=== PATIENT | male | born 1970 | race African-American/Black ===

== ENCOUNTER 2016-12-03 03:29 | Emergency (ER) | payer MEDICAID ==
[~2016-12-03] VITALS: Ht 172.7 cm; Wt 72.0 kg
[2016-12-03 04:00] VITALS: BP 118/76
== END 2016-12-03 07:18 | disposition home or self-care (01) ==
LOC: ER 03:30
DX: S02.2XXA Fracture of nasal bones, initial encounter for closed fracture (principal); F17.200 Nicotine dependence, unspecified, uncomplicated; F12.10 Cannabis abuse, uncomplicated; F16.10 Hallucinogen abuse, uncomplicated; W22.8XXA Striking against or struck by other objects, initial encounter; Y93.89 Activity, other specified; Y92.89 Other specified places as the place of occurrence of the external cause; Y99.8 Other external cause status
CPT/HCPCS: 70450; 70486; 99284

== ENCOUNTER 2018-06-14 12:36 | Emergency (ER) | payer MEDICAID ==
[~2018-06-14] VITALS: Ht 172.7 cm; Wt 62.0 kg
[2018-06-14 12:44] VITALS: BP 139/90
== END 2018-06-14 14:30 | disposition left against medical advice (07) ==
LOC: ER 12:36
DX: Z53.21 Procedure and treatment not carried out due to patient leaving prior to being seen by health care provider (principal)

== ENCOUNTER 2018-07-25 23:48 | Emergency (ER) | payer MEDICAID ==
[~2018-07-25] VITALS: Ht 177.8 cm; Wt 66.0 kg
[2018-07-26 00:03] VITALS: BP 116/80
== END 2018-07-26 09:30 | disposition left against medical advice (07) ==
LOC: ER 23:48
DX: Z53.21 Procedure and treatment not carried out due to patient leaving prior to being seen by health care provider (principal)

== ENCOUNTER 2021-02-19 02:45 | Inpatient (IN) | payer MEDICAID, OTHER ==
[~2021-02-19] VITALS: Ht 172.7 cm; Wt 59.9 kg
[2021-02-19] MEDS ORDERED: ONDANSETRON HCL 4MG/2ML INJ IV STA (04:04)
[2021-02-19] MEDS ORDERED: SODIUM CHLORIDE 0.9% 1,000 ML IV ONE (04:15)
[2021-02-19 04:49] LABS: BASOPHILS % 0.4 % (0.0-2.0); HEMATOCRIT. 37.3 % (42.0-52.0); HEMOGLOBIN. 12.6 g/dL (14.0-18.0); LYMPHOCYTES % 32.4 % (20.0-50.0); MEAN CORPUSCULAR HEMOGLOBIN 32.1 pg (28.0-32.0); MEAN CORPUSCULAR VOLUME 95.3 fL (80.0-94.0); MEAN PLATELET VOLUME 7.4 fl (7.4-10.4); NEUTROPHILS % 58.2 % (40.0-76.0); PLATELET 242 x1000/uL (130-400); RED BLOOD CELL COUNT 3.92 mill/uL (4.7-6.1); RED CELL DISTRIBUTION WIDTH 12.5 % (11.6-14.6)
[2021-02-19 04:55] LABS: CHLORIDE 107 mEq/L (98-107)
[2021-02-19 05:02] LABS: ETHANOL BLOOD < 10 mg/dL
[2021-02-19 05:14] LABS: *COCAINE SCREEN URINE NEGATIVE (NEGATIVE)
[2021-02-19 05:15] LABS: *AMPHETAMINES SCREEN URINE PRESUMTIVE POSITIVE (NEGATIVE); *BARBITURATES SCREEN URINE NEGATIVE (NEGATIVE); CANNABINOID URINE SCREEN PRESUMTIVE POSITIVE (NEGATIVE); METHADONE URINE SCREEN NEGATIVE (NEGATIVE); OPIATES URINE SCREEN NEGATIVE (NEGATIVE); PHENCYCLIDINE URINE SCREEN PRESUMTIVE POSITIVE (NEGATIVE)
[2021-02-19 05:16] LABS: *BENZODIAZEPINES SCREEN URINE PRESUMTIVE POSITIVE (NEGATIVE)
[2021-02-19] MEDS ORDERED: ONDANSETRON HCL 4MG/2ML INJ IV PRN (14:30)
[2021-02-19] MEDS ORDERED: IPRATROPIUM/ALBUTEROL 0.5-3(2.5)MG/3ML NEB HHN PRN (14:30)
[2021-02-19] MEDS ORDERED: ACETAMINOPHEN 325MG TABLET PO PRN (14:30)
[2021-02-19] MEDS ORDERED: DIPHENHYDRAMINE 50MG/ML VIAL IV PRN (14:30)
[2021-02-19] MEDS ORDERED: CLONIDINE 0.1MG TABLET PO PRN (14:30)
[2021-02-20 04:00] VITALS: BP 100/71
[2021-02-20] MEDS ORDERED: LORAZEPAM 0.5MG TABLET PO PRN (05:15)
[2021-02-20 08:00] VITALS: BP 109/70
[2021-02-20 08:01] VITALS: BP 100/71
[2021-02-20 12:00] VITALS: BP 114/74
[2021-02-20 16:00] VITALS: BP 112/76
[2021-02-20] MEDS ORDERED: MORPHINE SULFATE 2 MG/ML CPJ (NOT FOR IM USE) IV PRN ×2 (18:30)
[2021-02-20] MEDS ORDERED: NALOXONE HCL 0.4MG/ML VIAL IV PRN (18:45)
[2021-02-20] MEDS ORDERED: LORAZEPAM 2MG/ML CPJ IV NR (19:00)
[2021-02-20] MEDS ORDERED: HALOPERIDOL LACTATE 5MG/ML VIAL IM ONE (19:14)
[2021-02-20] MEDS ORDERED: HALOPERIDOL LACTATE 5MG/ML VIAL IM PRN (19:15)
[2021-02-20] MEDS ORDERED: LORAZEPAM 2MG/ML CPJ IM PRN (19:15)
[2021-02-20] MEDS ORDERED: DIPHENHYDRAMINE 50MG/ML VIAL IM NR (19:15)
[2021-02-20] MEDS ORDERED: LORAZEPAM 2MG/ML CPJ ONE (19:18)
[2021-02-20] MEDS ORDERED: SODIUM CHLORIDE 0.9% 1,000 ML IV SCH (19:30)
[2021-02-20 20:00] VITALS: BP 158/73
[2021-02-21] VITALS: BP 122/73
[2021-02-21 04:00] VITALS: BP 130/67
[2021-02-21 06:18] LABS: BASOPHILS % 0.5 % (0.0-2.0); EOSINOPHILS % 0.3 % (0.0-5.0); HEMOGLOBIN. 14.1 g/dL (14.0-18.0); LYMPHOCYTES % 28.9 % (20.0-50.0); MEAN CORPUSCULAR HEMOGLOBIN 31.7 pg (28.0-32.0); MEAN CORPUSCULAR VOLUME 96.6 fL (80.0-94.0); MEAN PLATELET VOLUME 7.6 fl (7.4-10.4); MONOCYTES % 10.2 % (2.0-8.0); NEUTROPHILS % 60.1 % (40.0-76.0); PLATELET 246 x1000/uL (130-400); RED BLOOD CELL COUNT 4.45 mill/uL (4.7-6.1); RED CELL DISTRIBUTION WIDTH 12.6 % (11.6-14.6)
[2021-02-21 06:58] LABS: CHLORIDE 106 mEq/L (98-107)
[2021-02-21 07:05] LABS: LDL CHOLESTEROL 66 mg/dL (5-100)
[2021-02-21 07:07] LABS: HDL CHOLESTEROL 60 mg/dL (40-59)
[2021-02-21 08:00] VITALS: BP 105/75
[2021-02-21 12:00] VITALS: BP 114/60
[2021-02-21 16:00] VITALS: BP 119/59
[2021-02-21 19:01] LABS: CREATINE KINASE 593 IU/L (39-308)
[2021-02-21 20:00] VITALS: BP 107/73
[2021-02-22] VITALS (7 sets, daily range): BP systolic 90–111; BP diastolic 50–77
[2021-02-22 13:13] LABS: CHLORIDE 104 mEq/L (98-107)
[2021-02-23 08:20] VITALS: BP 92/60
[2021-02-23 12:00] VITALS: BP 113/72
[2021-02-23 14:08] VITALS: BP 109/75
== END 2021-02-23 14:30 | disposition home or self-care (01) | DRG 812 ==
LOC: ER 02:45 → MICUSO 13:11 → EDBEDREQ 13:13 → ENRESERV 15:52 → 6EST 02-20 02:35
PROVIDERS: ADMIT Internal Medicine; ATTEND Internal Medicine
DX: T40.7X1A Poisoning by cannabis (derivatives), accidental (unintentional), initial encounter (principal); G92 Toxic encephalopathy; F31.9 Bipolar disorder, unspecified; F20.9 Schizophrenia, unspecified; T43.621A Poisoning by amphetamines, accidental (unintentional), initial encounter; T42.4X1A Poisoning by benzodiazepines, accidental (unintentional), initial encounter; J45.909 Unspecified asthma, uncomplicated; Z82.49 Family history of ischemic heart disease and other diseases of the circulatory system; Y92.89 Other specified places as the place of occurrence of the external cause; Z78.1 Physical restraint status
CPT/HCPCS: 36415; 73560; 80053; 80061; 80305; 80320; 82550; 84443; 85025; 93005; 93970; 99291; J1200; J1630; J2060; J2270; J2310; J2405; J7030; G0480

== ENCOUNTER 2022-05-10 23:07 | Emergency (ER) | payer MEDICAID, OTHER ==
[~2022-05-10] VITALS: Ht 172.7 cm; Wt 63.8 kg
[2022-05-11] MEDS ORDERED: KETOROLAC 60MG/2ML VIAL IM STA (02:05)
[2022-05-11] MEDS ORDERED: NAPR-681 PO (04:14)
[2022-05-11 05:00] VITALS: BP 119/80
== END 2022-05-11 05:04 | disposition home or self-care (01) ==
LOC: ER 23:07
DX: M25.511 Pain in right shoulder (principal); F15.10 Other stimulant abuse, uncomplicated
CPT/HCPCS: 73030; 96372; 99283; J1885